=== PATIENT | female | born 1945 | race Caucasian/White ===

== ENCOUNTER → 2018-06-23 12:07 | Outpatient (CLI) | payer MEDICARE, SELFPAY | PROVIDERS: Referring Provider Dermatology; Visit Provider Dermatology | DX: Z48.817 Encounter for surgical aftercare following surgery on the skin and subcutaneous tissue (principal) | CPT/HCPCS: 87070; 87077; 87186; 87205 ==

== ENCOUNTER → 2018-07-20 12:21 | Outpatient (CLI) | payer MEDICARE, SELFPAY | PROVIDERS: Referring Provider Dermatology; Visit Provider Dermatology | DX: M71.341 Other bursal cyst, right hand (principal) | CPT/HCPCS: 87070; 87205 ==